=== PATIENT | female | born 1955 | race Caucasian/White ===

== ENCOUNTER 2023-05-25 11:12 | Emergency (ER) | payer BC, MEDICARE ==
[2023-05-25] MEDS ORDERED: traMADol HCl 50 MG TAB ONE (12:05)
== END 2023-05-25 12:52 | disposition home or self-care (01) ==
LOC: ERS 11:12
DX: S90.31XA Contusion of right foot, initial encounter (principal); E11.9 Type 2 diabetes mellitus without complications; F17.210 Nicotine dependence, cigarettes, uncomplicated; Z79.82 Long term (current) use of aspirin; W20.8XXA Other cause of strike by thrown, projected or falling object, initial encounter